=== PATIENT | male | born 1935 | race African-American/Black ===

== ENCOUNTER 2017-03-29 13:42 | Emergency (ER) | payer OTHER ==
[~2017-03-29 13:42] MED LIST: ASAB PO; CADUET10 MG/20 M PO; HALF81 PO; LOTE20 PO; MOBIC7.5 PO; NORV10 PO; PRILOSEC40 MG PO; ULTRAM50 PO; ZANAFLEX2 MG PO
== END 2017-03-29 13:55 | disposition home or self-care (01) ==
LOC: ER 13:42
DX: M25.511 Pain in right shoulder (principal); I10 Essential (primary) hypertension; Z88.5 Allergy status to narcotic agent; Z79.82 Long term (current) use of aspirin; Z79.899 Other long term (current) drug therapy
CPT/HCPCS: 73030-RT; 99283; A9270-GY